=== PATIENT | female | born 1980 ===

== ENCOUNTER 2017-08-21 01:27 | Emergency (ER) | payer SELFPAY ==
[~2017-08-21] VITALS: Ht 172.7 cm; Wt 77.3 kg
[2017-08-21 01:34] VITALS: BP 117/68
[2017-08-21] MEDS ORDERED: GABA-533 PO ×3 (01:40)
[2017-08-21] MEDS ORDERED: ELVI1TAB3 PO (01:40)
== END 2017-08-21 03:27 | disposition left against medical advice (07) ==
LOC: EMS 01:28
DX: H57.11 Ocular pain, right eye (principal); Z53.21 Procedure and treatment not carried out due to patient leaving prior to being seen by health care provider